=== PATIENT | female | born 1965 | race Two or more races ===

== ENCOUNTER 2025-03-03 13:48 | Emergency (ER) | payer OTHER ==
[~2025-03-03] VITALS: Ht 172.7 cm; Wt 93.0 kg
[2025-03-03 14:02] VITALS: BP 109/73; O2SAT 95
[2025-03-03] MEDS ORDERED: LOSARTAN POTAS100 MG PO (14:03)
[2025-03-03] MEDS ORDERED: SYNTHROID50 MCG PO (14:03)
[2025-03-03] MEDS ORDERED: ORPHENADRINE CITRATE 30 MG/ML AMPUL IM STA (15:32)
[2025-03-03] MEDS ORDERED: KETOROLAC TROMETHAMINE 30 MG VIAL IM STA (15:32)
[2025-03-03] MEDS ORDERED: DEXAMETHASONE SODIUM PHOSPHATE 4 MG/ML VIAL IM STA (15:33)
[2025-03-03] MEDS ORDERED: DEXAMETHASONE SODIUM PHOSPHATE 4 MG/ML VIAL ONE (16:08)
[2025-03-03] MEDS ORDERED: KETOROLAC TROMETHAMINE 30 MG VIAL ONE (16:08)
[2025-03-03] MEDS ORDERED: ORPHENADRINE CITRATE 30 MG/ML AMPUL ONE (16:08)
[2025-03-03] MEDS ORDERED: DICLOFENAC SODI75 MG PO (18:02)
== END 2025-03-03 18:26 | disposition home or self-care (01) ==
LOC: ER 13:48
DX: S29.8XXA Other specified injuries of thorax, initial encounter (principal); W19.XXXA Unspecified fall, initial encounter; Y93.89 Activity, other specified; Y92.488 Other paved roadways as the place of occurrence of the external cause; Y99.8 Other external cause status; M25.561 Pain in right knee; M25.562 Pain in left knee; I10 Essential (primary) hypertension